=== PATIENT | male | born 1985 | race Two or more races ===

== ENCOUNTER 2017-02-15 09:03 | Inpatient (IN) | payer OTHER ==
[~2017-02-15] VITALS: Ht 175.3 cm; Wt 95.7 kg
[2017-02-15] MEDS ORDERED: SODIUM CHLORIDE 0.9% 1,000 ML IV ONE (09:23)
[2017-02-15] MEDS ORDERED: LEVETIRACETAM INJ 1,000 MG in D5W 5% 100 ML IV ONE (09:30)
[2017-02-15 09:43] LABS: Basophils # (auto) 0.1 uL; Basophils % (auto) 0.7 % (0.0-2.0); Eosinophils # (auto) 0 uL; Eosinophils % (auto) 0.1 % (0.0-7.0); Hematocrit 46.3 % (41.0-53.0); Hemoglobin 15.5 g/dL (13.5-17.5); Lymphocytes # (auto) 1.1 uL; Lymphocytes % (auto) 6.8 % (10.0-50.0); Mean Corpuscular Hemoglobin 30.7 pg (28.0-32.0); Mean Corpuscular Hgb Conc. 33.4 g/dL (32.0-36.0); Mean Corpuscular Volume 91.9 fL (80.0-100.0); Monocytes # (auto) 0.9 uL; Monocytes % (auto) 5.6 % (0.0-12.0); Neutrophils % (auto) 86.8 % (37.0-80.0); Platelet Count (auto) 273 10^3/uL (140-450); Red Blood Cells 5.03 10^6/uL (4.5-5.90); Red Cell Distribution Width 12.6 % (11.8-14.3); White Blood Cell 16.1 10^3/uL (4.4-10.8)
[2017-02-15 10:09] LABS: Albumin 3.8 g/dL (3.4-5.0); BUN/Creatinine Ratio 17.6; Calcium 8.4 mg/dL (8.5-10.1)
[2017-02-15 10:12] LABS: Bilirubin, Total 0.3 mg/dL (0.2-1.0); Total Protein 7.3 g/dL (6.4-8.2)
[2017-02-15] MEDS ORDERED: HYDROcodone-ACET 10/325MG TAB PO PRN (12:00)
[2017-02-15] MEDS ORDERED: LORazepam 2MG/ML-1ML VIAL IV PRN (12:00)
[2017-02-15 14:00] VITALS: BP 105/58
[2017-02-15 16:48] VITALS: BP 105/58
[2017-02-15] MEDS ORDERED: INFLUENZA QUAD 2017-2018 0.5 ML SYRG IM ONE (18:00)
[2017-02-15 22:00] VITALS: BP 104/54
[2017-02-15] MEDS: LEVETIRACETAM 500 MG TAB PO SCH (22:28)
[2017-02-16 05:00] VITALS: BP 112/84
[2017-02-16 07:41] VITALS: BP 91/50
[2017-02-16] MEDS: LEVETIRACETAM 500 MG TAB PO SCH (10:48)
[2017-02-16 11:49] VITALS: BP 111/67
[2017-02-16 12:03] LABS: Urine Bacteria NONE SEEN /hpf (None Seen); Urine Blood Negative /uL (Negative); Urine WBC 1 /hpf (0 - 3)
[2017-02-16 12:09] LABS: Alcohol, Urine < 3.0 mg/dL (0-5); Amphetamine Screen, Urine NEGATIVE (NEGATIVE); Barbiturate Scree,Urine NEGATIVE (NEGATIVE); Benzodiazephine Screen, Urine NEGATIVE (NEGATIVE); Cannabinoid Screen, Urine NEGATIVE (NEGATIVE); Cocaine Screen, Urine NEGATIVE (NEGATIVE); Opiate Scree,Urine NEGATIVE (NEGATIVE); Phencyclidine Screen, Urine NEGATIVE (NEGATIVE)
[2017-02-16 17:00] VITALS: BP 112/64
[2017-02-16 21:42] VITALS: BP 111/63
[2017-02-17 05:00] VITALS: BP 101/46
[2017-02-17 06:01] LABS: Basophils # (auto) 0.1 uL; Basophils % (auto) 0.5 % (0.0-2.0); Eosinophils # (auto) 0.1 uL; Eosinophils % (auto) 1.4 % (0.0-7.0); Hematocrit 46.9 % (41.0-53.0); Hemoglobin 16.1 g/dL (13.5-17.5); Lymphocytes # (auto) 2.7 uL; Lymphocytes % (auto) 26.6 % (10.0-50.0); Mean Corpuscular Hemoglobin 31.7 pg (28.0-32.0); Mean Corpuscular Hgb Conc. 34.4 g/dL (32.0-36.0); Mean Corpuscular Volume 92.1 fL (80.0-100.0); Monocytes # (auto) 0.8 uL; Monocytes % (auto) 7.7 % (0.0-12.0); Neutrophils # (auto) 6.6 uL; Neutrophils % (auto) 63.8 % (37.0-80.0); Nucleated Red Blood Cells % 0.1 %; Platelet Count (auto) 263 10^3/uL (140-450); Red Blood Cells 5.09 10^6/uL (4.5-5.90); Red Cell Distribution Width 12.8 % (11.8-14.3); White Blood Cell 10.3 10^3/uL (4.4-10.8)
[2017-02-17 08:00] VITALS: BP 136/75
[2017-02-17 09:00] VITALS: BP 136/75
[2017-02-17 12:32] VITALS: BP 118/65
[2017-02-17 17:00] VITALS: BP 128/73
[2017-02-17 22:00] VITALS: BP 133/76
[2017-02-18 05:00] VITALS: BP_SYST 101; BP_SYST 109; BP_SYST 110; BP_DIAS 59; BP_DIAS 63; BP_DIAS 74
[2017-02-18 08:00] VITALS: BP 117/68
[2017-02-18 09:00] VITALS: BP 117/68
[2017-02-18 12:50] VITALS: BP 112/62
[2017-02-18 17:00] VITALS: BP 115/71
[2017-02-18 22:00] VITALS: BP 127/84
[2017-02-19 05:00] VITALS: BP 108/65
[2017-02-19 08:54] VITALS: BP 108/61
[2017-02-19 13:24] VITALS: BP 123/59
[2017-02-19 17:05] VITALS: BP 131/75
[2017-02-19 22:00] VITALS: BP 120/72
[2017-02-20 05:00] VITALS: BP 115/68
[2017-02-20 08:00] VITALS: BP 122/57
[2017-02-20 08:30] VITALS: BP 122/57
[2017-02-20 12:30] VITALS: BP 115/80
[2017-02-20 17:08] VITALS: BP 122/73
[2017-02-20 18:30] VITALS: BP 122/73
== END 2017-02-20 20:26 | DRG 101 ==
LOC: ER 09:09 → EEVIPCON 09:10 → OVERFLOW 09:10 → TELE-E-ADS 15:09 → EAST 02-16 22:03 → TELE-E-ADS 02-18 23:45
PROVIDERS: ADMIT Internal Medicine; ATTEND Internal Medicine
DX: R56.9 Unspecified convulsions (principal); E86.0 Dehydration; X58.XXXA Exposure to other specified factors, initial encounter; Y93.89 Activity, other specified; Y92.89 Other specified places as the place of occurrence of the external cause; Z90.49 Acquired absence of other specified parts of digestive tract; Z87.828 Personal history of other (healed) physical injury and trauma; Z23 Encounter for immunization
CPT/HCPCS: 36415; 70450; 70551; 80053; 80307; 80320; 81001; 84443; 85025; 94761; 95819; 96365; J7060